=== PATIENT | male | born 1935 | race Caucasian/White ===

== ENCOUNTER 2016-12-09 10:39 | Observation (INO) | payer MEDICARE, BC ==
[2016-12-09] MEDS ORDERED: NITROGLYCERIN 0.4 MG/TAB BTL SL PRN (10:53)
--- OUTSIDE RECORDS SUMMARY | 2016-12-09 11:03 | XMS REPORT | Summary of Care ---
:[address] [facility] Address [address] [place] [id number]- Care Team Providers Name Role Phone Shanel Balbuena Primary Care Physician Encounter Date(s): 05/24/16 - 05/24/[address] [address] Discharge Disposition: Discharged to Home or Self Care Attending Physician: Darrian Tirado MD Admitting Physician: Darrian Tirado MD Vital Signs No data available for this section Problem List No data available for this section Allergies, Adverse Reactions, Alerts No Known Medication Allergies Medications amoxicillin 0 Refill(s), Start Date: 03/24/15 13:12:00 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 Start Date: 03/24/15 Stop Date: 05/26/15 Status: Completedatorvastatin 10 mg oral tablet 1 tab(s), Oral, Daily, # 30 tab(s), 0 Refill(s), Start Date: 03/24/15 13:12:00 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 Start Date: 03/24/15 Status: Orderedhydrocodone-acetaminophen 5mg-325mg oral tablet TAKE 1 TAB TWICE A DAY NEEDED Start Date: 05/24/16 Status: Orderedirbesartan 150 mg oral tablet TAKE ONE TABLET BY MOUTH DAILY Start Date: 05/24/16 Status: Orderedirbesartan 300 mg oral tablet 1 tab(s), Oral, Daily, # 30 tab(s), 0 Refill(s), Start Date: 03/24/15 13:11:00 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 Start Date: 03/24/15 Stop Date: 05/24/16 Status: Completedomeprazole 20 mg oral delayed release capsule 1 cap(s), Oral, Daily, # 30 cap(s), 0 Refill(s), Start Date: 03/24/15 13:12:00 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 Start Date: 03/24/15 Status: OrderedpredniSONE 1 mg oral tablet See Instructions, Take 2 tabs daily for 30 days, then 1.5 daily for 30 days, then 1 tab daily for 30 days, then 0.5 tab daily for 30 days then OFF, # 150 tab (s), 0 Refill(s), Start Date: 05/24/16 10:16:00 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, Pharmacy: [place], [place] Start Date: 05/24/16 Status: OrderedpredniSONE 1 mg oral tablet 3 tab(s), Oral, Daily, 0 Refill(s), Start Date: 03/24/15 13:11:00 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 Start Date: 03/24/15 Stop Date: 11/24/15 Status: CompletedpredniSONE 2.5 mg oral tablet 1 tab(s), Oral, Daily, # 90 tab(s), 1 Refill(s), Start Date: 11/24/15 10:09:54 CDT, Pharmacy: [place], [place] Start Date: 11/24/15 Stop Date: 05/24/16 Status: CompletedpredniSONE 2.5 mg oral tablet 1 tab(s), Oral, Daily, X 30 days, # 30 tab(s), 1 Refill(s), Start Date: 12:25:49 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, Pharmacy: [place], [place] Start Date: 07/07/15 Stop Date: 09/15/15 Status: CompletedpredniSONE 2.5 mg oral tablet 1 tab(s), Oral, Daily, # 90 tab(s), 1 Refill(s), Start Date: 09/15/15 17:05:07 CDT, Pharmacy: [place], [place] Start Date: 09/15/15 Stop Date: 11/24/15 Status: CompletedpredniSONE 2.5 mg oral tablet 1 tab(s), Oral, Daily, X 30 days, # 30 tab(s), 1 Refill(s), Start Date: 11:04:00 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 Start Date: 05/26/15 Stop Date: 05/27/15 Status: CompletedpredniSONE 2.5 mg oral tablet 1 tab(s), Oral, Daily, X 30 days, # 30 tab(s), 1 Refill(s), Start Date: 16:24:02 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
--- OUTSIDE RECORDS SUMMARY | 2016-12-09 11:03 | XMS REPORT | Summary of Care ---
:1935 Author Organization [facility] Address [address] [place] [address] Care Team Providers Name Role Phone Phanilaly Raqueldev Primary Care Physician Encounter Date(s): 05/24/16 - 05/24/16 [facility] [address], [address] [place], [place] [address] Discharge Disposition: 01 Discharged to Home or Self Care Attending Physician: Darrian Tirado MD Referring Physician: Darrian Tirado MD Vital Signs Most recent to oldest [Reference Range]: 1 Peripheral Pulse Rate [60-100 bpm] 59 bpm *LOW* (05/24/16 9:59 AM) Blood Pressure [90-130/60-90 mmHg] 155/79mmHg *HI* (05/24/16 9:59 AM) Mean Arterial Pressure, Cuff 104 mmHg (05/24/16 9:59 AM) Height/Length Measured 170.18 cm (05/24/16 9:59 AM) Weight Dosing 96.60 kg1 (05/24/16 10:01 AM) Weight Measured 96.6 kg (05/24/16 9:59 AM) BSA Measured 2.08 m2 (05/24/16 9:59 AM) Body Mass Index Measured 33.35 kg/m2 (05/24/16 9:59 AM) 1Result Comment: This result was because the dosing weight was either not entered or it is>30 days old. 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 Start Date: 03/24/15 Status: Orderedhydrocodone-acetaminophen 5mg-325mg oral tablet TAKE 1 TAB TWICE A DAY NEEDED Start Date: 05/24/16 Status: Orderedirbesartan 150 mg oral tablet TAKE ONE TABLET BY MOUTH DAILY Start Date: 05/24/16 Status: Orderedirbesartan 300 mg oral tablet 1 tab(s), Oral, Daily, # 30 tab(s), 0 Refill(s), Start Date: 03/24/15 13:11:00 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 Start Date: 03/24/15 Stop Date: 05/24/16 Status: Completedomeprazole 20 mg oral delayed release capsule 1 cap(s), Oral, Daily, # 30 cap(s), 0 Refill(s), Start Date: 03/24/15 13:12:00 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 Start Date: 03/24/15 Status: OrderedpredniSONE 1 mg oral tablet See Instructions, Take 2 tabs daily for 30 days, then 1.5 daily for 30 days, then 1 tab daily for 30 days, then 0.5 tab daily for 30 days then OFF, # 150 tab (s), 0 Refill(s), Start Date: 05/24/16 10:16:00 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, Pharmacy: [place], [place] Start Date: 05/24/16 Status: OrderedpredniSONE 1 mg oral tablet 3 tab(s), Oral, Daily, 0 Refill(s), Start Date: 03/24/15 13:11:00 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 Start Date: 03/24/15 Stop Date: 11/24/15 Status: CompletedpredniSONE 2.5 mg oral tablet 1 tab(s), Oral, Daily, # 90 tab(s), 1 Refill(s), Start Date: 11/24/15 10:09:54 CDT, Pharmacy: [place], [place] Start Date: 11/24/15 Stop Date: 05/24/16 Status: CompletedpredniSONE 2.5 mg oral tablet 1 tab(s), Oral, Daily, X 30 days, # 30 tab(s), 1 Refill(s), Start Date: 12:25:49 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, Pharmacy: [place], [place] Start Date: 07/07/15 Stop Date: 09/15/15 Status: CompletedpredniSONE 2.5 mg oral tablet 1 tab(s), Oral, Daily, # 90 tab(s), 1 Refill(s), Start Date: 09/15/15 17:05:07 CDT, Pharmacy: [place], [place] Start Date: 09/15/15 Stop Date: 11/24/15 Status: CompletedpredniSONE 2.5 mg oral tablet 1 tab(s), Oral, Daily, X 30 days, # 30 tab(s), 1 Refill(s), Start Date: 11:04:00 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
--- NOTE | 2016-12-09 11:09 | ERNOTE ---
Chest Pain/Cardiac HPI Chief Complaint: Chest Pain Time Seen by Provider: 12/09/16 10:45 Source: patient Exam Limitations: no limitations Immunizations: IMMUNIZATION HX Immunizations Up to Date No History of Influenza Vaccine No Hx Pneumococcal Vaccination No Allergies/Adverse Reactions: Allergies No Known Allergies Allergy (Verified 12/09/16 10:47) Home Medications: HOME MEDICATIONS Omeprazole [Prilosec Generic] 20 mg PO BID 08/26/12 [Last Taken Unknown] predniSONE [Prednisone] 5 mg PO DAILY 08/26/12 [Last Taken Unknown] Atorvastatin Calcium [Lipitor] 10 mg PO HS 10/02/12 [Last Taken Unknown] Irbesartan [Avapro] 150 mg PO DAILY 11/25/15 [Last Taken Unknown] Narrative: Patient has had intermittent left chest pain for two days, no clear correlation to activity, no prior cardiac history Date (Duration): 12/07/16 Timing: intermittent Severity/Quality: mild, dull Location: left chest Chest Pain Radiation: no radiation Activities at Onset: none Modifying Factors - Improves: Present: nothing Modifying Factors - Worsens: Present: nothing Nitro Today/Relief: no nitro taken today Aspirin Treatment Today: 325 mg x 1, provided at home Associated Symptoms: Present: denies symptoms Prior Chest Pain/Cardiac Workup: Denies: prior chest pain - Review of Systems - Review of Systems Constitutional: Absent: recent illness ENT: Present: nose congestion. Absent: sore throat Respiratory: Absent: shortness of breath, cough Cardiology: Present: See HPI, chest pain Gastrointestinal/Abdominal: Absent: nausea, vomiting, diarrhea, abdominal pain Genitourinary: Present: no symptoms reported Musculoskeletal: Present: no symptoms reported. Absent: back pain Skin: Absent: rash Neurological: Absent: headache, weakness, numbness - Patient's Past Medical History Patient History - Medical: No pertinent hx Patient History - Cardiac/Respiratory: Hypertension, Hyperlipidemia Patient History - Surgical Procedures: Cataracts, Other Patient History - Other: None - Social History Living Situations: home Abuse History: No History of abuse Psych History: No pertinent hx Smoking Status: Never smoker Have you smoked in the past 12 months: No Alcohol Use: none Drug Use: none - Immunizations Immunizations Up to Date: No Hx Pneumococcal Vaccination: No History of Influenza Vaccine: No Physical Exam - Physical Exam General Appearance: Present: wd/wn, alert, no apparent distress Respiratory: Present: no respiratory distress, normal breath sounds, no accessory muscle use, chest nontender, lungs clear Cardiovascular/Chest: Present: regular rate, rhythm, no murmur Gastrointestinal/Abdominal: Present: nontender, nondistended, soft Extremity Exam: Present: no edema Neurological Exam: Present: alert, oriented, normal mood/affect Skin Exam: Present: normal color, warm/dry ED Progress - Results and Orders Patient's Lab Results:: I have reviewed the patient's lab results. - Vital Signs Patient's Vital Signs:: I have reviewed the patient's vital signs. Vital Signs: Vital Signs 12/09/16 12/09/16 10:43 10:51 Temperature 36.2 C L Pulse Rate 54 L 55 L Respiratory 20 Rate Blood Pressure 101/65 O2 Sat by Pulse 95 Oximetry - EKG EKG: NSR - sinusbradycardia, WA - first degree AV block, RBBB - incomplete, changed from - slightly increased WA from 04/2015, other - no acute changes EKG read: Interp. by me - X-Ray X-Ray #1 X-Ray: chest - no acute findings Interpretation: Reviewed by me - Progress/Reassessment Chief Complaint: Chest Pain Progress Note-Subjective: 12/09/16 11:12 pain resolved (patient states before he got nitro) 12/09/16 11:45 discussed test results with patient and , offered admission, agreed 12/09/16 11:[address] Balbuena,okay to admit for chest pain observation Departure - Departure Clinical Impression: Chest pain Qualifiers: Chest pain type: precordial pain Qualified Code(s): R07.2 - Precordial pain Disposition: [facility] Condition: Good
[2016-12-09 11:21] LABS: Hematocrit 39.4 % (42.0-52.0); Hemoglobin 13.4 gm/dL (13.5-18.0); Mean Cell Volume 93.4 fl (78-100); Mean Corpuscular Hemoglobin 31.8 pg (27-31); Mean Platelet Volume 8.2 fl (6.0-9.5); Neutrophil # 6.2 K/mm3 (1.3-6.0); Neutrophil % 71.5 % (42-75.0); Platelet Count 212 K/mm3 (150-450); Red Blood Count 4.22 M/mm3 (4.7-6.0); Red Cell Distribution Width 13.8 % (11.5-14.0); White Blood Count 8.7 K/mm3 (4.0-10.5)
[2016-12-09 11:31] LABS: Prothrombin Time (Patient) 10.3 Seconds (9.4-11.4)
[2016-12-09 11:34] LABS: INR 0.99 INR (0.90-1.10); Partial Thrombolplastin Time 24.5 Seconds (24-32)
[2016-12-09 11:39] LABS: Albumin * 3.6 gm/dl (3.4-5.0); Anion Gap 16.7 mmol/L (6.8-13.8); Bilirubin, Total 0.9 mg/dL (0.0-1.1); Ca. Corrected For Albumin 8.8 mg/dL (8.4-10.2); Calcium * 8.8 mg/dL (7.9-10.9); Carbon Dioxide 23.7 mmol/L (24-32.6); Potassium 4.4 mmol/L (3.4-4.6)
--- NOTE | 2016-12-09 14:31 | HP ---
Chief Complaint - Chief Complaint Date of Service: 12/09/16 Time of Service: 14:30 Chief Complaint: chest pain on and off x 3 days. History of Present Illness: Patient is a 81-year-old WM with a H/O HTN, HLD, PMR who came to the ER for evaluation of LT sided chest pain present for the last 3 days not related to activity, not associated with shortness of breath, nausea, diaphoresis and which does not radiate. Patient feels it may be related to a cold/congestion which he had about 3 days ago and has subsided. EKG showed NSR with incomplete RBBB and was unremarkable. Troponin was normal. He was admitted into observation. - Patient's Past Medical History Additional Info: PAST MEDICAL HISTORY: HTN 1999, HLD 1999, PMR 2013, osteoarthritis- neck and knees, BPH, mild anemia. Additional Info: PAST SURGICAL HISTORY: Bilateral cataract surgery: RT 05/2010, LT 06/2010; colonoscopy: 1994, 1999, 2003 , 2010-LT sited diverticulosis; HARMEET at L4-L5 in 2003; HARMEET 2 cervical at [facility] 2015; Hemorrhoidal banding 2003, 2007; inguinal hernia repair 2010; Hemorrhoidectomy 2012. Patient History - Other: None - Family History Mother Family History - Medical: - 74 CAD, CABG Father Family History - Medical: - 74COPD Siblings Family History - Medical: - 78 CHF, DM; 50s-colon cancer; 60s-CABG, CAD. - Social History Living Situations: spouse Abuse History: No History of abuse Psych History: No pertinent hx Smoking Status: Never smoker Have you smoked in the past 12 months: No Do you dip or chew tobacco: No Patient requests Smoking Cessation Consult: No Initiate information on Smoking Cessation: No Alcohol Use: none Drug Use: none - Immunizations Immunizations Up to Date: No Hx Pneumococcal Vaccination: No History of Influenza Vaccine: No Review Of Systems (GEN) - Review of Systems Generalized/Overall Review: Absent: Weakness, Chills, Fever Respiratory: Present: Cough. Absent: Shortness of Breath Cardiac: Present: Chest Pain. Absent: Edema, Palpitations Musculoskeletal: Present: Joint Pain, Back Pain - knee pain Immunizations: IMMUNIZATION HX Immunizations Up to Date No History of Influenza Vaccine No Hx Pneumococcal Vaccination No Allergies/Adverse Reactions: Allergies Allergy/AdvReac Type Severity Reaction Status Date / Time No Known Allergies Allergy Verified 12/09/16 12:36 Home Medications: HOME MEDICATIONS Omeprazole [Prilosec Generic] 20 mg PO BID@0700,1900 08/26/12 [Last Taken Unknown] predniSONE [Prednisone] 5 mg PO DAILY@0700 08/26/12 [Last Taken Unknown] Atorvastatin Calcium [Lipitor] 10 mg PO DAILY@0700 10/02/12 [Last Taken Unknown] Irbesartan [Avapro] 150 mg PO DAILY@0700 11/25/15 [Last Taken Unknown] Aspirin [Aspirin Enteric Coated] 325 mg PO DAILY 12/09/16 [Last Taken Unknown] Exam - Exam Vital Signs: Vital Signs - Last Taken Temp 36.6 C 12/09/16 12:53 Pulse 50 L 12/09/16 12:53 Resp 18 12/09/16 12:53 BP 182/68 12/09/16 12:53 Pulse Ox 98 12/09/16 12:53 Constitutional: Present: Elderly, Obese - Alert and oriented, in no acute distress ENT Exam: Present: hearing grossly normal, moist mucous membranes Eye Exam: bilateral eye: PERRL, EOMI Neck: Present: normal inspection, trachea midline Respiratory: Present: lungs clear, normal breath sounds Cardiovascular/Chest: Present: regular rate, rhythm, no chest tenderness. Absent: tachycardia Peripheral Pulses: carotid (R): 2+, carotid (L): 2+ Abdomen: Present: Normal bowel sounds, soft, nontender, nondistended, obese Extremity: Present: normal range of motion, normal inspection Skin Exam: Present: normal color, warm/dry Neurologic: Present: no motor/sensory deficits Appearance: Present: appropriate appearance, appropriate insight, neat Diagnostic Studies: Laboratory Tests 12/09/16 11:15 WBC 8.7 Hgb 13.4 L Hct 39.4 L Plt Count 212 12/09/16 11:15 Plasma Sodium 139 Potassium 4.4 Chloride 103 Carbon Dioxide 23.7 L BUN 24 H Creatinine 1.20 Est GFR (Non-Af Amer) 62 Random Glucose 101 Calcium Adj for Albumin 8.8 Total Bilirubin 0.9 AST 19 ALT 20 Alkaline Phosphatase 50 Troponin I < .007 EK12/09/16: Sinus bradycardia first-degree AV block 55/m. Incomplete RBBB. No acute changes. CXR: PA lateral:12/09/16: Diffuse hyperinflation of lungs bilaterally with flattening of the hemidiaphragm. Scattered calcified granulomas. Lungs are clear bilaterally. There is no consolidation, pleural effusion or pneumothorax. DJD of the spine and shoulders present. IMPRESSION: NO ACUTE CARDIOPULMONARY ABNORMALITY IDENTIFIED Assessment/Plan - Procedures Results: 1. Chest pain: Initial troponin and EKG were unremarkable. Patient does not have chest wall tenderness/epigastric tenderness. Obtain serial troponins. If negative, will schedule for nuclear treadmill. Risk factors are age and male sex. 2. Hypertension: Continue irbesartan 150 mg daily. 3. PMR: Continue prednisone 5 mg PO daily. 4. GI prophylaxis: Continue omeprazole 20 mg daily.
[2016-12-09] MEDS: LOSARTAN POTASSIUM 50 MG TABLET PO SCH (15:58)
[2016-12-09] MEDS ORDERED: ACETAMINOPHEN 325 MG TABLET PO PRN (20:10)
[2016-12-09] MEDS ORDERED: diphenhydrAMINE HCL 25 MG CAPSULE PO ONE (20:30)
[2016-12-10] MEDS ORDERED: predniSONE 5 MG TABLET PO SCH (07:00)
[2016-12-10] MEDS ORDERED: PANTOPRAZOLE SODIUM 20 MG TABLET.DR PO SCH (07:00)
[2016-12-10] MEDS: LOSARTAN POTASSIUM 50 MG TABLET PO SCH (09:10)
--- NOTE | 2016-12-10 09:32 | DS ---
(1) Chest pain, unspecified Problem: Acute Qualifiers: Chest pain type: unspecified Qualified Code(s): R07.9 - Chest pain, unspecified (2) Hypertension Problem: Chronic Qualifiers: Hypertension type: essential hypertension Qualified Code(s): I10 - Essential (primary) hypertension (3) PMR (polymyalgia rheumatica) Problem: Chronic (4) Chronic GERD Problem: Chronic (5) Hyperlipidemia Problem: Chronic Qualifiers: Hyperlipidemia type: unspecified Qualified Code(s): E78.5 - Hyperlipidemia , unspecified Description of Stay: DATE OF ADMISSION: 12/09/2016. DATE OF DISCHARGE: 12/10/2016. DIAGNOSTICS: NONE. DISCHARGE SUMMARY: Theo Burks is a 81-year-old WM with H/O HTN, HLD, chronic GERD, PMR who came with a history of intermittent LT sided chest pain for the last 3 days. It was graded as 2/10, dull, not associated with nausea/diaphoresis/radiation. Patient came into the ER for evaluation. EKG and troponin were unremarkable. Patient was admitted into observation he underwent a nuclear treadmill on 2016. Exercised on a modified Eric protocol for a total period of 11 minutes and had no EKG changes/chest pain. EF was 70%. Impression showed ischemia suggested with apical segment of LV myocardium. This will be reviewed with the legal file clerk Patient discharged in a stable condition Procedures Performed: see notes below - nuclear treadmill - 12/10/16. Results and Findings: 12/09/16 11:15 WBC 8.7 Hgb 13.4 L Hct 39.4 L Plt Count 212 12/09/16 11:15 Plasma Sodium 139 Potassium 4.4 Chloride 103 Carbon Dioxide 23.7 L BUN 24 H Creatinine 1.20 Est GFR (Non-Af Amer) 62 Random Glucose 101 Calcium Adj for Albumin 8.8 Total Bilirubin 0.9 AST 19 ALT 20 Alkaline Phosphatase 50 Troponin I < .007 EK12/09/16: Sinus bradycardia first-degree AV block 55/m. Incomplete RBBB. No acute changes. CXR: PA lateral:12/09/16: Diffuse hyperinflation of lungs bilaterally with flattening of the hemidiaphragm. Scattered calcified granulomas. Lungs are clear bilaterally. There is no consolidation, pleural effusion or pneumothorax. DJD of the spine and shoulders present. IMPRESSION: NO ACUTE CARDIOPULMONARY ABNORMALITY IDENTIFIED Discharge Disposition: Home self care Disposition: Home self-care Condition: Undetermined Discharge Activity: Activity as tolerated Discharge Diet: Low salt, Low fat/chol, High Fiber Referrals: Shanel Balbuena MD [Primary Care Provider] - Problem Oriented Discharge Instructions to Patient/Family: Nonspecific Chest Pain, [id number] Additional Patient Instructions (free text): MEDS DISCONTINUED: ASA 325 mg PO daily NEW MEDS: ASA 81 mg PO daily with food. Appt with Dr. Carrington 2-3 weeks. on 12-28-16 @ 10:00am Prescriptions (Any new or edited meds): Aspirin [Aspirin EC] 81 mg PO DAILY #100 tablet. Complete Home Medications List: Complete Home Medication List: Omeprazole [Prilosec] 20 mg PO BID@0700,1900 08/26/12 predniSONE [Prednisone] 5 mg PO DAILY@0700 08/26/12 Atorvastatin Calcium [Lipitor] 10 mg PO DAILY@0700 10/02/12 Irbesartan [Avapro] 150 mg PO DAILY@0700 11/25/15 Aspirin [Aspirin EC] 81 mg PO DAILY #100 tablet. 12/10/16
[2016-12-10 16:28] VITALS: BP 154/63
== END 2016-12-10 10:58 | disposition home or self-care (01) ==
LOC: ER 10:39 → MS 11:55
PROVIDERS: ADMIT Internal Medicine; ATTEND Internal Medicine
DX: R07.2 Precordial pain (principal); I10 Essential (primary) hypertension; E78.5 Hyperlipidemia, unspecified; M35.3 Polymyalgia rheumatica; M17.0 Bilateral primary osteoarthritis of knee; M47.892 Other spondylosis, cervical region; N40.0 Benign prostatic hyperplasia without lower urinary tract symptoms; K21.9 Gastro-esophageal reflux disease without esophagitis; D64.9 Anemia, unspecified
CPT/HCPCS: 36415; 71020; 78452; 80053; 84484; 85025; 85610; 85730; 93005; 93017; 99284; A9502; G0378